=== PATIENT | male | born 1950 | race Caucasian/White ===

== ENCOUNTER 2019-02-20 12:37 | Emergency (ER) | payer OTHER ==
[~2019-02-20] VITALS: Ht 182.9 cm; Wt 81.7 kg
[2019-02-20] MEDS ORDERED: ASPI325 PO (13:31)
[2019-02-20] MEDS ORDERED: CBD (13:31)
[2019-02-20] MEDS ORDERED: Prednisone20 MG PO (14:06)
[2019-02-20] MEDS ORDERED: Robaxin-750750 MG PO (14:06)
== END 2019-02-20 14:34 | disposition home or self-care (01) ==
LOC: ER 12:37
DX: M54.31 Sciatica, right side (principal); Z79.82 Long term (current) use of aspirin; Z87.891 Personal history of nicotine dependence
CPT/HCPCS: 96372; 99283-25; J1885; J7512